=== PATIENT | male | born 1960 | race Caucasian/White ===

== ENCOUNTER 2020-06-03 08:53 | Emergency (ER) | payer SELFPAY | END 2020-06-03 10:17 | disposition left against medical advice (07) | LOC: HO.ED 10:16 | PROVIDERS: Emergency Provider Emergency Medicine | DX: H57.13 Ocular pain, bilateral (principal) | CPT/HCPCS: 99281 ==

== ENCOUNTER → 2020-06-03 10:03 | Outpatient (BNVA) | payer OTHER, SELFPAY | PROVIDERS: Visit Provider Physician Assistant Medical | DX: S00.251A Superficial foreign body of right eyelid and periocular area, initial encounter (principal); W22.8XXA Striking against or struck by other objects, initial encounter | CPT/HCPCS: 65205; 99203 ==